=== PATIENT | male | born 1965 | race Two or more races ===

== ENCOUNTER 2020-05-27 20:45 | Emergency (ER) | payer OTHER ==
[~2020-05-27] VITALS: Ht 162.6 cm; Wt 98.4 kg
[~2020-05-27 20:45] MED LIST: INTESTINEX1 CAP PO; METFORMIN HCL500 MG; PROTONIX40 M1; PROTONIX40 MG PO
== END 2020-05-27 22:51 | disposition home or self-care (01) ==
LOC: ER 20:45
DX: B34.9 Viral infection, unspecified (principal); R53.81 Other malaise; Z03.818 Encounter for observation for suspected exposure to other biological agents ruled out

== ENCOUNTER 2022-09-29 07:16 | Outpatient (CLI) | payer OTHER | END 2022-09-29 07:18 | disposition home or self-care (01) | LOC: NUCLEAR 07:16 | PROVIDERS: ATTEND Internal Medicine Cardiovascular Disease | DX: I10 Essential (primary) hypertension (principal); R07.9 Chest pain, unspecified ==